=== PATIENT | female | born 2000 | race Hispanic/Latino ===

== ENCOUNTER 2021-12-24 19:06 | Emergency (ER) | payer OTHER ==
--- OUTSIDE RECORDS SUMMARY | 2021-12-24 19:41 | XMS REPORT | Continuity of Care Document ---
:[address] [facility] t Address [address] [place] [address] Care Team Providers Name Role Phone PCP, DOES NOT HAVE A Primary Care Physician Unavailable NUVIA ANTOINE Attending Clinician Unavailable Nuvia Chauhan Attending Clinician Doctor Unassigned, Name Attending Clinician Unavailable Yen Alonzo MD Attending Clinician Yen ALONZO Attending Clinician Unavailable Payers Payer Name Policy Type Policy Number Effective Date Expiration Date Anne [employer] [id number] [id number] OUT OF NETWORK 00:00:00 Problems Condition Condition Condition Status Onset Resolution Last Treating Co mments Source Name Details Category Date Date Treatment Clinician Date No known No known Disease Unive rs active active ity of problems problems [facility] Allergies, Adverse Reactions, Alerts Allergy Allergy Status Severity Reaction(s) Onset Inactive Treating Comm ents Source Name Type Date Date Clinician NO KNOWN Drug Active Univers ALLERGIE Class ity of S [facility] Social History Social Habit Start Date Stop Date Quantity Comments Source Exposure to Not sure [facility] SARS-CoV-2 (event) Medica l Branch Sex Assigned At [birth year] [facility] 00:00:00 00:00:00 [facility] Smoking Status Start Date Stop Date Source Unknown if ever smoked [facility] Medications Ordered Filled Start Stop Current Ordering Indication Dosage Frequency Signature Comments Components Source Medication Medication Date Date Medication? Clinician (SIG) Name Name ketorolac 2021- No 15mg 15 mg, Unive rs (TORADOL) 08-08 Slow IV ity of injection 20:30: 19:27 [place], [place] 15 mg 00 :00 ONCE, 1 Medical dose, On Branch 08/08/21 at 1430, ASHLEY
Fa culty member approving Restricted medication : ELINA Margarito PEDERSEN ondansetron Yes [id number] 4mg Take 1 Univers (ZOFRAN 1-19 tablet by ity of ODT) 4 mg 00:00: mouth [place] disintegrat 00 every 8 Medic al ing tablet (eight) Branch hours as needed for Nausea and Vomiting (N/V). cephALEXin 2021- No [id number] 500mg Take 1 Univers (KEFLEX) 08-08 capsule by ity of 500 mg 00:00: 05:59 mouth 3 [place] capsule 00 :00 (three) Medical times Branch daily for 10 days. ibuprofen 2020- No 600mg 600 mg, Uni vers (IBU) 07-21 Oral, ity of tablet 600 19:15: 18:13 ONCE, 1 [place] as mg 00 :00 dose, Fri Medical 07/21/20 at Branch 1315, ASHLEY amoxicillin Yes [id number] 500mg Take 1 Univers 500 mg 07-21 capsule by ity of capsule 00:00: mouth 3 [place] 00 (three) Medical times Branch daily. amoxicillin Yes [id number] 500mg Take 1 Univers 500 mg 07-21 capsule by ity of capsule 00:00: mouth 3 [place] 00 (three) Medical times Branch daily. amoxicillin Yes [id number] 500mg Take 1 Univers 500 mg 07-21 capsule by ity of capsule 00:00: mouth 3 [place] 00 (three) Medical times Branch daily. Vital Signs Vital Name Observation Time Observation Value Comments Source Systolic blood 2021-08-08 18:49:00 137 mm[Hg] Jaseer sity of [facility] Diastolic blood 2021-08-08 18:49:00 81 mm[facility]Hg[facility] 2021-08-08 18:49:00 120 [facility] Body temperature 2021-08-08 18:49:00 37.11 Saskia [facility] ersity of [facility] Respiratory rate 2021-08-08 18:49:00 20 /min [facility] ersity of [facility] Body height 2021-08-08 18:49:00 157.5 cm Universi ty of [facility] Body weight 2021-08-08 18:49:00 66.679 kg Universi ty of [facility] BMI 2021-08-08 18:49:00 26.89 kg/m2 Universi ty [facility] Body mass index 2021-08-08 18:49:00 86.92 % Unive rsity of (BMI) [Percentile] [facility] ica Per age and sex Branch Oxygen saturation in 2021-08-08 18:49:00 100 /min University of Arterial blood by [facility] [place] [place] Pulse oximetry Branch Systolic blood 2020-07-21 17:32:00 134 mm[Hg] Univer sity of pressure [facility] Diastolic blood 2020-07-21 17:32:00 83 mm[Hg] Unive rsity of pressure [facility] Heart rate 2020-07-21 17:32:00 98 /min Universi ty [facility] Body temperature 2020-07-21 17:32:00 37.33 Saskia [facility] Respiratory rate 2020-07-21 17:32:00 20 /min [facility] Body height 2020-07-21 17:32:00 157.5 cm Universi ty [facility] Body weight 2020-07-21 17:32:00 68.947 kg Universi ty [facility] BMI 2020-07-21 17:32:00 27.80 [facility]m2 [facility] Oxygen saturation in 2020-07-21 17:32:00 98 /min University of Arterial blood by [facility] [place] [place] Pulse oximetry Branch Procedures Procedure Date / Time Performed Performing Clinician Sourda e LIPASE 2021-08-08 19:03:00 Margarito Antoine [place] [facility] COMP. METABOLIC PANEL 2021-08-08 19:03:00 Margarito Antoine [facility] ([id number]) Medical Branch CBC WITH DIFF 2021-08-08 19:03:00 Margarito Antoine [place] [facility] URINALYSIS 2021-08-08 19:03:00 Margarito Antoine [place] [facility] POCT TEST 2021-08-08 19:01:00 Margarito Antoine Universi ty of [facility] NOTICE OF PRIVACY 2021-08-08 18:48:47 Doctor Unassigned, No Univ [facility] [place] PRACTICES Name Medical Branch CONSENT/REFUSAL FOR 2021-08-08 18:45:39 Doctor Unassigned, No Un i[facility]ity of [place] DIAGNOSIS AND Name Medical Branch TREATMENT RAPID STREP SCREEN FOR 2020-07-21 18:02:00 Kori [facility]onzo [facility] GROUP A Medical Branch COVID-19 (ID NOW RAPID 2020-07-21 18:02:00 Kori [facility]onzo [facility] TESTING) Medical Branch CONSENT/REFUSAL FOR 2020-07-21 17:14:51 Doctor Unassigned, No Un [facility] [place] DIAGNOSIS AND Name Medical Branch TREATMENT NOTICE OF PRIVACY 2020-07-21 17:14:29 Doctor Unassigned, No [facility] Branch Encounters Start End Encounter Admission Attending Care Care Encounter Source Date/Time Date/Time Type Type Clinicians Facility Department ID 2021-08-08 2021-08-08 Emergency X Margarito ANTOINE [facility] ERT [id number] Univers 12:52:00 16:14:00 ity of [facility] 2021-08-08 2021-08-08 Emergency Margarito Antoine [facility] [id number] Univers 12:52:00 16:14:00 Nuvia GRANADOS [id number] i ty of [place] 4.2.7.2.686 [facility] [id number] [facility] 084 Branch 2021-08-08 2021-08-08 Orders Doctor OSEI [id number] Univers 00:00:00 00:00:00 Only UnassignedHERNAN [id number] ity of [place] [facility] 4.2.7.2.686 [facility] [id number] [facility] 009 Branch 2020-07-21 2020-07-21 Emergency Kori Alonzo [facility] [id number] Univers 11:34:00 14:08:00 W Bre 350.1.13.10 i ty [place] 4.2.7.2.686 [facility] [id number] [place] [id number] Branch 2020-07-21 2020-07-21 Emergency X KORI ALONZO [facility] ERT [id number] Univers 11:34:00 11:34:00 ity of [facility] Results Test Description Test Time Test Comments Results Result Comments Source Complete Metabolic Panel 2021-08-08 19:37:16 Test Item Value Reference Range Interpretation Comme nts NA (test code = 6705643559) 136 mmol/L 135-145 K (test code = 7175663488) 4.0 mmol/L 3.5-5.0 CL (test code = 2573970973) 104 mmol/L 98-108 CO2 TOTAL (test code = 4565851608) 24 mmol/L 23-31 AGAP (test code = 0299627499) 2-16 BUN (test code = 6011505712) 10 mg/dL 7-23 GLUCOSE (test code = 4639940542) 97 mg/dL 70-110 CREATININE (test code = 0.48 mg/dL 0.50-1.04 L 0378848771) TOTAL BILI (test code = 0.5 mg/dL 0.1-1.0 8949908084) CALCIUM (test code = 8522568307) 8.7 mg/dL 8.6-10.6 T PROTEIN (test code = 1040801241) 8.0 g/dL 6.3-8.2 ALBUMIN (test code = 4479791073) 4.6 g/dL 3.5-5.0 ALK PHOS (test code = 5753217561) 75 U/L 34-122 ALTv (test code = 1742-6) 18 U/L 5-35 AST(SGOT) (test code = 6227808908) 24 U/L 13-40 eGFR (test code = 7835336158) mL/min/1.73m2 LUNA (test code = LUNA) Association of Glomerular Filtration Rate (GFR) and Staging of Kidney Disease* + +-------- + ------+| GFR (mL/min/1.73 m2) ?| With Kidney Damage ?| ?Without Kidney Damage+ +-- + +| ?>90 ?| ?Stage one ?| ? Normal ?+ +------- + -------+| ?60-89 ?| ?Stage two ?| ? Decreased GFR ? + +-------- + ------+| ?30-59 ?| ?Stage three ?| ? Stage three ? + +-------- + ------+| ?15-29 ?| ?Stage four ? | ? Stage four ?+ +------- + -------+| ?<15 (or dialysis) ? ?| ?Stage five ? | ? Stage five ?+ +------- + -------+ *Each stage assumes the associated GFR level has been in effect for at least three months. ?Stages 1 to 5, with or without kidney disease, indicate chronic kidney disease. Notes: Determination of stages one and two (with eGFR >59mL/min/1.73 m2) requires estimation of kidney damage for at least three months as defined by structural or functional abnormalities of the kidney, manifested by either:Pathological abnormalities or Markers of kidney damage (including abnormalities in the composition of the blood or urine or abnormalities in imaging tests). Lab Interpretation (test code = Abnormal 20391-4) [facility] [id number] 19:36:20 Test Item Value Reference Range Interpretation Comments LIPASE (test code = 9534841897) 40 U/L 0-220 Lab Interpretation (test code = Normal 85702-1) [facility] CenterCB with [id number] 19:18:56 Test Item Value Reference Range Interpretation Comments WBC (test code = See_Comment [Automated 2180-2) message] The sy stem which generated this result transmitted reference range : 4.30 - 11.10 10*3/?L. The reference range was not used to interpret this result as normal/abnormal . RBC (test code = See_Comment [Automated 264-2) message] The sy stem which generated this result transmitted reference range : 3.93 - 5.25 10*6/?L. The reference range was not used to interpret this result as normal/abnormal . HGB (test code = 10.2 g/dL 11.6-15.0 L 718-7) HCT (test code = 35.2 % 35.7-45.2 L 4544-3) MCV (test code = 69.7 fL 80.6-95.5 L 787-2) MCH (test code = 20.2 pg 25.9-32.8 L 785-6) MCHC (test code = 29.0 g/dL 31.6-35.1 L 786-4) RDW-SD (test code = 42.9 fL 39.0-49.9 45631-6) RDW-CV (test code = 17.2 % 12.0-15.5 H 788-0) PLT (test code = See_Comment [Automated 777-3) message] The sy stem which generated this result transmitted reference range : 166 - 358 10*3/ ?L. The reference r dee was not used to interpret this result as normal/abnormal . MPV (test code = 10.7 fL 9.5-12.9 16568-7) NRBC/100 WBC (test See_Comment [Automat ed code = 9931973171) message] The system which generated this result transmitted reference range : 0.0 - 10.0 /100 WBCs. The refer ence range was not u sed to interpret th is result as normal/abnormal . NRBC x10^3 (test code <0.01 See_Comment [Auto mated = 4724557908) message] The s ystem which generated this result transmitted reference range : 10*3/?L. The reference range was not used to interpret this result as normal/abnormal . GRAN MAT (NEUT) % 50.1 % (test code = 770-8) IMM GRAN % (test code 0.30 % = 6119627256) LYMPH % (test code = 38.6 % 736-9) MONO % (test code = 7.2 % 5905-5) EOS % (test code = 3.0 % 713-8) BASO % (test code = 0.8 % 706-2) GRAN MAT x10^3(ANC) 3.54 10*3/uL 1.88-7.09 (test code = 8153217460) IMM GRAN x10^3 (test <0.03 0.00-0.06 code = 6635266099) LYMPH x10^3 (test code 2.73 10*3/uL 1.32-3.29 = 731-0) MONO x10^3 (test code 0.51 10*3/uL 0.33-0.92 = 742-7) EOS x10^3 (test code = 0.21 10*3/uL 0.03-0.39 711-2) BASO x10^3 (test code 0.06 10*3/uL 0.01-0.07 = 704-7) Lab Interpretation Abnormal (test code = 02676-1) [facility] [id number] 19:01:00 Test Item Value Reference Range Interpretation Comments POCT PREG (test code = 1605) negative On board controls acceptable with present C Line (test code = 3574) POCT PREG LOT # (test code = 3575) [id number] POCT PREG TEST DATE (test 09-17-2022 code = 3576) Lab Interpretation (test code = Normal 17631-2) [facility] STREP SCREEN FOR GROUP [id number] 18:35:00 Test Item Value Reference Range Interpretation Comments Streptococcus pyogenes (group A) Negative Negative antigen (test code = 86423-6) Lab Interpretation (test code = Normal 86896-6) [facility] Center[facility]OVID-[facility] (ID NOW RAPID TESTING)2020-07-21 18:32:00 Test Item Value Reference Range Interpretation Comments SARS-CoV-2 Rapid ID NOW Not Detected Not Detected (test code = 73760-3) LUNA (test code = LUNA) ID NOW COVID-19 Assay is an isothermal nucleic acid amplification test intended for the qualitative detection of nucleic acid from SARS-CoV-2 viral RNA in nasopharyngeal (CIVILIAN JAIL OFFICER) specimens. It is used under Emergency Use Authorization (EUA) by FDA. The limit of detection (LOD) of the assay is 125 Genome Equivalents/mL. A positive result is indicative of the presence of SARS-CoV-2 RNA. ?Clinical correlation with patient history and other diagnostic information is necessary to determine patient infection status. A negative (Not Detected) result does not preclude SARS-CoV-2 infection. In patients with clinical symptoms and other tests that are consistent with SARS-CoV-2 infection, negative results should be treated as presumptive negative and a new specimen should be tested with alternative PCR molecular test. Invalid: Please collect a new specimen for repeat patient testing if clinically indicated. Lab Interpretation Normal (test code = 32325-6) [facility]"
--- NOTE | 2021-12-24 20:58 | RAD REPORT ---
EXAM DESCRIPTION: RAD - Chest Single View - 12/24/2021 8:39 pm CLINICAL HISTORY: COUGH COMPARISON: None TECHNIQUE: AP portable chest image was obtained 12/24/2021 8:39 pm . FINDINGS: Lungs are clear. Heart and vasculature are normal. No measurable pleural effusion and no p neumothorax. No acute bony abnormality seen. No acute aortic findings suspected. IMPRESSION: No acute cardiopulmonary process.
--- NOTE | 2021-12-24 21:25 | ER ---
Nurse's Notes [facility] Name: Nessa Camacho Age: 20 yrs Sex: Female : 2000 Arrival Date: 12/24/2021 Time: 19:08 Bed 26 Private MD: Diagnosis: URI;RAD Presentation: 12/24 19:37 Chief complaint: Patient states: SOB since last Friday. Pt denies chest pain. Reporting ld1 "yawning a lot." SpO2 98% RA. N/V/D - 3 days. Denies having a fever. Coronavirus screen: At this time, the client does not indicate any symptoms associated with coronavirus-19. Ebola Screen: No symptoms or risks identified at this time. Initial Sepsis Screen: Does the patient meet any 2 criteria? No. Patient's initial sepsis screen is negative. Does the patient have a suspected source of infection? No. Patient's initial sepsis screen is negative. Risk Assessment: Do you want to hurt yourself or someone else? Patient reports no desire to harm self or others. Onset of symptoms was December 24, 2021. 19:37 Method Of Arrival: Ambulatory ld1 19:37 Acuity: JACOBO 3 ld1 Triage Assessment: 19:39 General: Appears in no apparent distress. comfortable, Behavior is calm, cooperative, ld1 appropriate for age. Pain: Denies pain. EENT: No signs and/or symptoms were reported regarding the EENT system. Neuro: Level of Consciousness is awake, alert, obeys commands, Oriented to person, place, time, situation. Cardiovascular: Capillary refill < 3 seconds Patient's skin is warm and dry. Rhythm is sinus rhythm. Respiratory: Reports shortness of breath at rest on exertion Airway is patent Respiratory effort is even, labored, Onset: The symptoms/episode began/occurred 1 week, the patient has mild shortness of breath. GI: Abdomen is flat, non-distended. : No signs and/or symptoms were reported regarding the genitourinary system. Derm: No signs and/or symptoms reported regarding the dermatologic system. Musculoskeletal: No signs and/or symptoms reported regarding the musculoskeletal system. 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 - Social history:: Smoking status: Patient uses street drugs, marijuana, Patient/guardian denies using alcohol. Screenin:12 Abuse screen: Denies threats or abuse. Denies injuries from another. Nutritional ld1 screening: No deficits noted. Tuberculosis screening: No symptoms or risk factors identified. Fall Risk None identified. Assessment: 22:12 Reassessment: Patient appears in no apparent distress at this time. See triage ld1 assessment. Cardiovascular: Capillary refill < 3 seconds Patient's skin is warm and dry. Rhythm is sinus tachycardia. Respiratory: Airway is patent Respiratory effort is even, unlabored, Breath sounds are clear bilaterally. Vital Signs: 19:37 BP 110 / 75; Pulse 73; Resp 20; Temp 98.6(TE); Pulse Ox 99% on R/A; Weight 68.04 kg; ld1 Height 5 ft. 2 in. (157.48 cm); Pain 0/10; 22:12 BP 111 / 72; Pulse 70; Resp 18; Pulse Ox 99% on R/A; ld1 19:37 Body Mass Index 27.44 (68.04 kg, 157.48 cm) ld1 ED Course: 19:08 Patient arrived in ED. tw2 19:27 Anna Henderson PA is PHCP. en 19:27 Jose Maldonado MD is Attending Physician. en 19:39 Triage completed. ld1 19:39 Arm band placed on right wrist. ld1 20:41 CXR XRAY In Process Unspecified. EDMS 20:48 Patient has correct armband on for positive identification. Placed in gown. Bed in low wm position. Call light in reach. Side rails up X 1. Door closed. Warm blanket given. Head of bed Elevated. Client placed on continuous cardiac and pulse oximetry monitoring. NIBP monitoring applied. air brake tester on. 21:23 Artemio Rowley MD is Referral Physician. en 22:12 Gianna Anaya RN is Primary Nurse. ld1 22:12 No provider procedures requiring assistance completed. Patient did not have IV access ld1 during this emergency room visit. Administered Medications: 19:51 CANCELLED (change routee): Albuterol HFA Inhaler 2 puffs Inhalation once en 21:43 Drug: Albuterol 2.5 mg Route: Inhalation; bb 21:43 Drug: predniSONE 40 mg Route: PO; bb Medication: 22:12 VIS not applicable for this client. ld1 Outcome: 21:24 Discharge ordered by MD. en 22:12 Discharged to home ambulatory. ld1 22:12 Condition: stable 22:12 Discharge instructions given to patient, Instructed on discharge instructions, follow up and referral plans. medication usage, Demonstrated understanding of instructions, follow-up care, medications, Prescriptions given X 3. 22:14 Patient left the ED. ld1 Signatures: Dispatcher [employer] EDDinah Justice RN RN bb Charline Ho RN RN tw2 Gianna Anaya RN RN ld1 Misty James Elizabeth, PA PA en Corrections: (The following items were deleted from the chart) 19:41 19:37 Chief complaint: Patient states: SOB since last Friday. Pt denies chest pain. ld1 Reporting "yawning a lot." SpO2 98% RA. ld1
--- NOTE | 2021-12-24 21:25 | EDPHYS ---
Physician Documentation [facility] Name: Nessa Camacho Age: 20 yrs Sex: Female : 2000 Arrival Date: 12/24/2021 Time: 19:08 Bed 26 Private MD: ED Physician Jose Maldonado HPI: 12/24 21:20 This 20 yrs old Female presents to ER via Ambulatory with complaints of en Shortness Of Breath. 21:20 -year-old female with no known medical history presents to ED with dry cough by 1 week en with wheezing. No fevers, chills, nausea, vomiting. No sore throat, dyspnea exertion.. 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 - Social history:: Smoking status: Patient uses street drugs, marijuana, Patient/guardian denies using alcohol. ROS: 21:20 Constitutional: Negative for fever, chills, and weight loss. en 21:20 Constitutional: Negative for body aches, chills, fatigue, fever. 21:20 Eyes: Negative for matting. 21:20 ENT: Negative for ear pain, rhinorrhea, sinus congestion, sore throat. 21:20 Cardiovascular: Negative for chest pain. 21:20 Respiratory: Positive for cough, wheezing, Negative for shortness of breath. 21:20 Abdomen/GI: Negative for nausea, vomiting, and diarrhea. 21:20 All other systems are negative. Exam: 21:20 Constitutional: This is a well developed, well nourished patient who is awake, alert, en and in no acute distress. 21:20 Constitutional: The patient appears in no acute distress, alert, awake, comfortable. 21:20 Eyes: Conjunctiva: normal, no exudate, no injection. 21:20 ENT: TM's: are normal, Nose: is normal, Mouth: Lips: normal, Oral mucosa: pink and intact, moist, Posterior pharynx: is normal, no erythema, no exudate, no swelling, Airway: 21:20 Neck: ROM/movement: is normal, Meningeal signs: 21:20 Cardiovascular: Exam negative for acute changes, Rate: normal, Rhythm: regular, Pulses: no pulse deficits are appreciated, Heart sounds: normal, no murmur, no rub, no gallop. 21:20 Respiratory: the patient does not display signs of respiratory distress, Respirations: normal, Breath sounds: are clear throughout, no rales, rhonchi, no stridor, no wheezing. 21:20 Respiratory: Breath sounds: rhonchi, Right-sided rhonchi wheezing., No hypoxia, retractions, accessory muscle use or respiratory distress.. 21:20 Abdomen/GI: Inspection: abdomen appears normal, Bowel sounds: active, all quadrants, Palpation: abdomen is soft and non-tender. 21:20 Skin: no rash present. 21:20 Neuro: Orientation: is normal, appropriate for stated age, to person, place \T\ time. Mentation: is normal. 21:20 Psych: Behavior/mood is pleasant, cooperative, Affect is calm. Vital Signs: 19:37 BP 110 / 75; Pulse 73; Resp 20; Temp 98.6(TE); Pulse Ox 99% on R/A; Weight 68.04 kg; ld1 Height 5 ft. 2 in. (157.48 cm); Pain 0/10; 22:12 BP 111 / 72; Pulse 70; Resp 18; Pulse Ox 99% on R/A; ld1 19:37 Body Mass Index 27.44 (68.04 kg, 157.48 cm) ld1 MDM: 20:24 Patient medically screened. en 21:20 Differential diagnosis: Bronchitis, pneumonia, reactive airway, URI. Data reviewed: en vital signs, nurses notes, radiologic studies, and as a result, I will discharge patient, Lung sounds improved after albuterol and steroids. Patient feels better. Reviewed imaging. No evidence of pneumonia. Will DC home with albuterol, prednisone, Tessalon Perles. Acute ER return precautions are. 12/24 19:51 Order name: CXR XRAY; Complete Time: 21:20 en Administered Medications: 19:51 CANCELLED (change routee): Albuterol HFA Inhaler 2 puffs Inhalation once en :43 Drug: Albuterol 2.5 mg Route: Inhalation; bb 21:43 Drug: predniSONE 40 mg Route: PO; bb Disposition: 12/25 02:07 Co-signature as Attending Physician, Jose Maldonado MD. [email or web address] Disposition Summary: 12/24/21 21:24 Discharge Ordered Location: Home en Problem: new en Symptoms: have improved en Condition: Stable en Diagnosis - URI en - RAD en Followup: en - With: Artemio Rowley MD - When: As needed - Reason: Discharge Instructions: - Discharge Summary Sheet en Forms: - Medication Reconciliation Form en - Thank You Letter en - Antibiotic Education en - Prescription Opioid Use en Prescriptions: - ProAir HFA 90 mcg/actuation Inhalation HFA aerosol inhaler - inhale 2 puff by INHALATION route 4 times per day; 1 puff; Refills: 0, Product en Selection Permitted - Tessalon Perles 100 mg Oral Capsule - take 1 capsule by ORAL route every 8 hours As needed; 15 capsule; Refills: 0, en Product Selection Permitted - Prednisone 20 mg Oral Tablet - take 2 tablets by ORAL route once daily for 5 days; 10 tablet; Refills: 0, en Product Selection Permitted Signatures: Dispatcher [employer] Dinah Sullivan RN RN Jose Taylor MD MD 7 Gianna Anaya RN RN ld1 Anna Henderson PA PA en Corrections: (The following items were deleted from the chart) 12/24 19:51 19:51 Albuterol HFA Inhaler 2 puffs Inhalation once ordered. en en
[2021-12-24] MEDS ORDERED: predniSONE 20 MG TAB ONE (21:44)
[2021-12-24] MEDS ORDERED: ALBUTEROL 2.5 MG/3 ML NEB SOL ONE (21:44)
[2021-12-24 22:44] VITALS: TEMP 98.6; O2SAT 99
[2021-12-24 22:45] VITALS: BP 111/72
== END 2021-12-24 22:14 | disposition home or self-care (01) ==
LOC: ER 19:06
DX: J06.9 Acute upper respiratory infection, unspecified (principal); J45.909 Unspecified asthma, uncomplicated
CPT/HCPCS: 71045; 99284; J7512

== ENCOUNTER 2022-01-20 10:54 | Emergency (ER) | payer OTHER ==
[2022-01-20 12:16] LABS: Absolute Lymphocytes (CBC) 2.1 K/uL (0.7-4.9); Hematocrit 36.1 % (36.0-45.0); Lymphocytes % 23.7 % (15.3-44.8); MCV 68.4 fL (80-100); MPV 8.4 fL (7.6-11.3); RBC Red Blood Cell Count 5.28 M/uL (3.86-4.86)
[2022-01-20] MEDS ORDERED: LIDOCAINE VISCOUS 2% SOLN 15 ML UDC ONE (12:18)
[2022-01-20] MEDS ORDERED: NA CHLORIDE 0.9% 500 ML ONE (12:18)
[2022-01-20] MEDS ORDERED: FAMOTIDINE 20 MG/2 ML VIAL IV ONE (12:18)
[2022-01-20] MEDS ORDERED: MAGNES/ALUMIN/SIMET 30ML UCUP ONE (12:18)
[2022-01-20 12:24] LABS: Urine Blood Negative (Negative); Urine Glucose Negative (Negative); Urine Protein Negative (Negative); Urine Specific Gravity 1.025 (1.005-1.030)
[2022-01-20 12:28] LABS: Albumin 3.8 g/dL (3.4-5.0); Bilirubin Total 0.3 mg/dL (0.2-1.0); Potassium 4.2 mmol/L (3.5-5.1); Protein, Total 7.5 g/dL (6.4-8.2)
[2022-01-20 12:31] LABS: Urine Specific Gravity/Preg 1.025 (1.005-1.030)
[2022-01-20 13:10] LABS: Platelet Estimate ADEQ; White Blood Cell Scan OK (OK)
[2022-01-20 13:11] LABS: Anisocytosis 1+; Blood Morphology Comment NOTED (NOT SEEN); Hypochromasia 1+
--- NOTE | 2022-01-20 13:39 | RAD REPORT ---
EXAM DESCRIPTION: CT - Abdomen Pelvis W Contrast - 01/20/2022 1:06 pm CLINICAL HISTORY: Abdominal pain, acute, nonlocalized COMPARISON: <Comparisons> TECHNIQUE: Biphasic, helical CT imaging of the abdomen and pelvis was performed following 100 ml non -ionic IV contrast. No oral contrast administered. All CT scans are performed using dose optimization technique as appropriate and may include automated exposure control or mA/KV adjustment according to patient size. FINDINGS: No suspicious findings in the lung bases. The liver, spleen, and pancreas show no suspicious findings. Gallbladder and biliary tree are also wi thout suspicious finding. Symmetric renal function is seen with no hydronephrosis or suspicious renal mass. No pyelonephritis o r acute parenchymal process. No bladder abnormalities. No adrenal abnormalities. No uterine abnormality. Small partially involuted 10 mm cyst seen in the left ovary. There is a parti ally involuted 15 mm cyst in the right ovary. Free fluid in the cul de sac is present within physiolo gic limits. No gastric dilatation or gastric wall thickening. No acute small bowel finding. Appendix is normal in diameter. No appendicolith or other findings of acute appendicitis. Small mesenteric lymph nodes are present in the right lower quadrant. No bulky lymphadenopathy is present. No free air, abnormal randa e fluid or pneumatosis. No hernia, mass or bulky lymphadenopathy. No suspicious bony findings. IMPRESSION: Contrast enhanced CT abdomen and pelvis showing no acute or emergent finding. Small right lower quadrant mesenteric lymph nodes are present. The appendix is still normal in diamet er without acute appendicitis findings at this time. Involuting ovarian cysts. 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
--- NOTE | 2022-01-20 15:05 | EDPHYS ---
Physician Documentation [facility] Name: Nessa Camacho Age: 21 yrs Sex: Female : 2000 Arrival Date: 01/20/2022 Time: 10:57 Bed 15 Private MD: ED Physician Shamir Pacheco HPI: 01/20 17:45 This 21 yrs old Female presents to ER via Ambulatory with complaints of kdr Abdominal Pain. 17:45 The patient presents with abdominal pain in the upper abdomen. Onset: The kdr symptoms/episode began/occurred 1 day(s) ago. The symptoms do not radiate. Associated signs and symptoms: none. The symptoms are described as achy, crampy, dull, intermittent, vague, waxing/waning. Modifying factors: The symptoms are alleviated by nothing, the symptoms are aggravated by food, movement. Severity of pain: At its worst the pain was mild moderate just prior to arrival, in the emergency department the pain has improved mildly. The patient has experienced similar episodes in the past, multiple times, Patient presents to the emergency department complaining of abdominal pain as it has been severe for 1 day. . The patient has not recently seen a physician, Patient has had multiple evaluations for this problem over the past year or more. She has not been given a specific diagnosis.. The patient admits to smoking marijuana on a regular basis she denies stated has been a contributor to the current problem. 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 - Social history:: Smoking status: Patient denies any tobacco usage or history of. Patient uses street drugs, marijuana. ROS: 17:45 Constitutional: Negative for fever, chills, and weight loss, Eyes: Negative for injury, kdr pain, redness, and discharge, Neck: Negative for injury, pain, and swelling, Cardiovascular: Negative for chest pain, palpitations, and edema, Respiratory: Negative for shortness of breath, cough, wheezing, and pleuritic chest pain, Back: Negative for injury and pain, : Negative for injury, bleeding, discharge, and swelling, MS/Extremity: Negative for injury and deformity, Skin: Negative for injury, rash, and discoloration, Neuro: Negative for headache, weakness, numbness, tingling, and seizure activity. Psych: Negative for depression, anxiety, suicide ideation, homicidal ideation, and hallucinations, Allergy/Immunology: Negative for hives, rash, and allergies, Endocrine: Negative for neck swelling, polydipsia, polyuria, polyphagia, and marked weight changes, Hematologic/Lymphatic: Negative for swollen nodes, abnormal bleeding, and unusual bruising. 17:45 Abdomen/GI: Positive for abdominal pain, nausea, Negative for diarrhea, constipation, abdominal cramps, abdominal distension, black/tarry stool, rectal pain, rectal bleeding. Exam: 17:45 Constitutional: This is a well developed, well nourished patient who is awake, alert, kdr and in no acute distress. Head/Face: Normocephalic, atraumatic. Eyes: Pupils equal round and reactive to light, extra-ocular motions intact. Lids and lashes normal. Conjunctiva and sclera are non-icteric and not injected. Cornea within normal limits. Periorbital areas with no swelling, redness, or edema. Neck: Trachea midline, no thyromegaly or masses palpated, and no cervical lymphadenopathy. Supple, full range of motion without nuchal rigidity, or vertebral point tenderness. No Meningismus. Chest/axilla: Normal chest wall appearance and motion. Nontender with no deformity. No lesions are appreciated. Cardiovascular: Regular rate and rhythm with a normal S1 and S2. No gallops, murmurs, or rubs. Normal PMI, no JVD. No pulse deficits. Respiratory: Lungs have equal breath sounds bilaterally, clear to auscultation and percussion. No rales, rhonchi or wheezes noted. No increased work of breathing, no retractions or nasal flaring. Abdomen/GI: Soft, non-tender, with normal bowel sounds. No distension or tympany. No guarding or rebound. No evidence of tenderness throughout. Skin: Warm, dry with normal turgor. Normal color with no rashes, no lesions, and no evidence of cellulitis. MS/ Extremity: Pulses equal, no cyanosis. Neurovascular intact. Full, normal range of motion. Neuro: Awake and alert, GCS 15, oriented to person, place, time, and situation. Cranial nerves II-XII grossly intact. Motor strength 5/5 in all extremities. Sensory grossly intact. Cerebellar exam normal. Normal gait. Psych: Awake, alert, with orientation to person, place and time. Behavior, mood, and affect are within normal limits. 17:45 Abdomen/GI: Inspection: abdomen appears normal, obese Bowel sounds: active, diminished, in all quadrants, Palpation: soft, mild abdominal tenderness, in the umbilical area, right upper quadrant and left upper quadrant. 17:45 Back: Vital Signs: 11:17 BP 128 / 84; Pulse 85; Resp 16; Temp 98.9; Pulse Ox 100% on R/A; Weight 68.04 kg; kr3 Height 5 ft. 2 in. (157.48 cm); Pain 6/10; 12:28 BP 108 / 77; Pulse 81; Resp 16; Pulse Ox 100% ; kr3 13:15 BP 108 / 79; Pulse 59; Resp 15; Pulse Ox 100% ; ll1 11:17 Body Mass Index 27.44 (68.04 kg, 157.48 cm) kr3 MDM: 15:04 Patient medically screened. kdr 17:45 Data reviewed: vital signs, nurses notes, lab test result(s), radiologic studies. kdr Counseling: I had a detailed discussion with the patient and/or guardian regarding: the historical points, exam findings, and any diagnostic results supporting the discharge/admit diagnosis, lab results, radiology results, the need for outpatient follow up. 01/20 11:43 Order name: CBC with Diff; Complete Time: 13:31 [facility] 01/20 11:43 Order name: CMP; Complete Time: 12:49 [facility] 01/20 11:43 Order name: Lipase; Complete Time: 12:49 [facility] 01/20 12:25 Order name: Urine Dipstick-Ancillary; Complete Time: 12:49 [facility] 01/20 12:25 Order name: Urine --Ancillary (enter results); Complete Time: 12:49 01/20 13:11 Order name: CBC Smear Scan; Complete Time: 13:31 [facility] 01/20 11:43 Order name: CT Abd/Pelvis - IV Contrast Only; Complete Time: 14:37 [facility] 01/20 11:43 Order name: IV Saline Lock; Complete Time: 11:59 [facility] 01/20 11:43 Order name: Labs collected and sent; Complete Time: 11:59 kdr 01/20 11:44 Order name: Urine Dipstick-Ancillary (obtain specimen); Complete Time: 12:28 kdr 01/20 11:44 Order name: Urine Test (obtain specimen); Complete Time: 12:28 kdr Administered Medications: 12:25 Drug: GI Cocktail without - (Maalox Suspension 30 ml, Lidocaine Liquid 2 % 15 kr3 ml) Route: PO; 14:05 Follow up: Response: No adverse reaction kr3 12:25 Drug: Pepcid (famotidine) 20 mg Route: IVP; Site: right antecubital; kr3 14:05 Follow up: Response: No adverse reaction kr3 12:25 Drug: NS 0.9% 500 ml Route: IV; Rate: bolus; Site: right antecubital; kr3 14:26 Follow up: Response: No adverse reaction; IV Status: Completed infusion; IV Intake: kr3 500ml Disposition Summary: 01/20/22 15:04 Discharge Ordered Location: Home kdr Condition: Stable kdr Diagnosis - Abdominal pain, Generalized kdr Followup: kdr - With: Private Physician - When: 2 - 3 days - Reason: If symptoms return, Further diagnostic work-up, Recheck today's complaints, Continuance of care, Re-evaluation by your physician Discharge Instructions: - Discharge Summary Sheet kdr - Gastritis, Adult, [id number] kdr Forms: - Medication Reconciliation Form kdr - Thank You Letter kdr - Antibiotic Education kdr - Prescription Opioid Use kdr Prescriptions: - famotidine 20 mg Oral tablet - take 1 tablet by ORAL route 2 times per day; 20 tablet; Refills: 0, Product kdr Selection Permitted - omeprazole 40 mg Oral capsule,delayed release(DR/EC) - take 2 capsule by ORAL route 2 times per day before a meal; 40 capsule; kdr Refills: 0, Product Selection Permitted Signatures: Dispatcher [employer] Shamir Greene MD MD kdr Elana Lopez RN RN kr3
--- NOTE | 2022-01-20 15:05 | ER ---
Nurse's Notes [facility] Name: Nessa Camacho Age: 21 yrs Sex: Female : 2000 Arrival Date: 01/20/2022 Time: 10:57 Bed 15 Private MD: Diagnosis: Abdominal pain, Generalized Presentation: 01/20 11:17 Chief complaint: Patient states: severe abd pain x 1 day, denies N,V,D. Coronavirus kr3 screen: Vaccine status: Patient reports being unvaccinated. Client denies travel out of the [place] in the last 14 days. At this time, the client does not indicate any symptoms associated with coronavirus-19. Ebola Screen: Patient negative for fever greater than or equal to 101.5 degrees Fahrenheit, and additional compatible Ebola Virus Disease symptoms Patient denies travel to an Ebola-affected area in the 21 days before illness onset. Initial Sepsis Screen: Does the patient meet any 2 criteria? No. Patient's initial sepsis screen is negative. Does the patient have a suspected source of infection? Yes: Acute abdominal pain. Risk Assessment: Do you want to hurt yourself or someone else? Patient reports no desire to harm self or others. Onset of symptoms was January 20, 2022. 11:17 Method Of Arrival: Ambulatory kr3 11:17 Acuity: JACOBO 3 kr3 Triage Assessment: 11:22 General: Appears uncomfortable, Behavior is calm, cooperative. Pain: Complains of pain kr3 in abdomen. Pain: Pain currently is 6 out of 10 on a pain scale. Quality of pain is described as aching, crampy, Pain began 3 hours ago. GI: Abdomen is flat, Bowel sounds present X 4 quads. Reports lower abdominal pain, upper abdominal pain, cramping. 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 - Social history:: Smoking status: Patient denies any tobacco usage or history of. Patient uses street drugs, marijuana. Screenin:25 Abuse screen: Denies threats or abuse. Nutritional screening: No deficits noted. kr3 Tuberculosis screening: No symptoms or risk factors identified. Fall Risk IV access (20 points). Total Orr Fall Scale indicates No Risk (0-24 pts). Assessment: 12:30 Reassessment: No changes from previously documented assessment. Patient and/or family kr3 updated on plan of care and expected duration. Pain level reassessed. GI:. 13:30 Reassessment: No changes from previously documented assessment. Patient and/or family ll1 updated on plan of care and expected duration. Pain level reassessed. Patient is alert, oriented x 3, equal unlabored respirations, skin warm/dry/pink. 14:30 Reassessment: No changes from previously documented assessment. Patient and/or family kr3 updated on plan of care and expected duration. Pain level reassessed. GI: Abd is soft and non tender X 4 quads. 15:22 Reassessment: Patient states feeling better. Patient states symptoms have improved. kr3 Vital Signs: 11:17 BP 128 / 84; Pulse 85; Resp 16; Temp 98.9; Pulse Ox 100% on R/A; Weight 68.04 kg; kr3 Height 5 ft. 2 in. (157.48 cm); Pain 6/10; 12:28 BP 108 / 77; Pulse 81; Resp 16; Pulse Ox 100% ; kr3 13:15 BP 108 / 79; Pulse 59; Resp 15; Pulse Ox 100% ; ll1 11:17 Body Mass Index 27.44 (68.04 kg, 157.48 cm) kr3 ED Course: 10:57 Patient arrived in ED. mr 11:08 Shamir Pacheco MD is Attending Physician. kdr 11:13 Elana Lopez RN is Primary Nurse. kr3 11:21 Triage completed. kr3 11:24 Arm band placed on Patient placed in an exam room, on a stretcher. kr3 11:25 No provider procedures requiring assistance completed. kr3 11:26 Patient has correct armband on for positive identification. Bed in low position. Call kr3 light in reach. Side rails up X 1. 12:10 Inserted saline lock: 22 gauge in right antecubital area, using aseptic technique. kr3 Blood collected. 13:08 CT Abd/Pelvis - IV Contrast Only In Process Unspecified. EDMS 15:20 IV discontinued, intact, bleeding controlled, No redness/swelling at site. Pressure kr3 dressing applied. Administered Medications: 12:25 Drug: GI Cocktail without - (Maalox Suspension 30 ml, Lidocaine Liquid 2 % 15 kr3 ml) Route: PO; 14:05 Follow up: Response: No adverse reaction kr3 12:25 Drug: Pepcid (famotidine) 20 mg Route: IVP; Site: right antecubital; kr3 14:05 Follow up: Response: No adverse reaction kr3 12:25 Drug: NS 0.9% 500 ml Route: IV; Rate: bolus; Site: right antecubital; kr3 14:26 Follow up: Response: No adverse reaction; IV Status: Completed infusion; IV Intake: kr3 500ml Medication: 13:42 VIS not applicable for this client. ll1 Intake: 14:26 IV: 500ml; Total: 500ml. kr3 Outcome: 15:04 Discharge ordered by . kdr 15:23 Discharged to home ambulatory. kr3 15:23 Condition: stable 15:23 Discharge instructions given to patient, Instructed on discharge instructions, follow up and referral plans. medication usage, Demonstrated understanding of instructions, follow-up care, medications, Prescriptions given X 2. 15:25 Patient left the ED. kr3 Signatures: Dispatcher [employer] EDMS Shamir Pacheco MD MD [facility], Rachana mr Amadeo Astudillo RN RN ll1 Elana Lopez RN RN kr3 Corrections: (The following items were deleted from the chart) 14:26 14:26 IV Status: Completed infusion; IV Intake: 500ml kr3 kr3
[2022-01-20 17:26] VITALS: TEMP 98.9; O2SAT 100
[2022-01-20 17:30] VITALS: BP 108/79
== END 2022-01-20 15:25 | disposition home or self-care (01) ==
LOC: ER 10:54
DX: R10.84 Generalized abdominal pain (principal)
CPT/HCPCS: 96361; 85025; 36415; 81025; 81003; 83690; 80053; 74177; 96374; 99284; Q9967; J7040; J3490